=== PATIENT | female | born 1965 | race Caucasian/White ===

== ENCOUNTER → 2022-08-13 | Outpatient (CLI) | payer OTHER ==
[2022-08-13 13:12] VITALS: BP 134/91; PULSE 67; RESP 18; TEMP 98.1
--- NOTE | 2022-08-13 14:39 | P.PAINPG ---
PQRS Measure Charge Sheet Comment: HISTORY OF PRESENT ILLNESS: 56 yr old female as a referral from Dr Moseley presents today w severe and chronic neck pain secondary to DDD, spondylosis and facet arthropathy without myelopathy for evaluation. Pt states pain level is provoked at 8 /10 in intensity, constant, localized in the mid to lower cervical spine, dull, achy in character w shooting pain towards the BL shoulders. Pain is provoked by lifting, rotation, hyperextension. Pain is alleviated by medications (Lyrica, Zanaflex), topical, PT w massage x 8 wks until July 2022, chiropractic treatments weekly x 1 mo which ended in Apr 2022, use of a cane for ambulatory assistance, repositioning and rest. PMH: OA, HTN, MDD PSH: Appendectomy, Lumbar Fusion, C section SH: No tobacco use, Occasional ETOH use, No illicit drug use FH: DM All: See list Meds: See list REVIEW OF ORGAN SYSTEMS: CONSTITUTIONAL: No fevers or chills. No recent weight loss. NEUROLOGICAL: + numbness and tingling along the distal extremities. No seizure disorders or headaches. MUSCULOSKELETAL: + pain PSYCHIATRIC: Denies current depression or suicidal thoughts. Physical Examinations : Constitutional : Cooperative , not in acute distress . Neurologic : Cranial nerve II to XII intact. No focal n eurological deficits. Psychiatric : alert & oriented x 3. Matching mood & appropriate affect. Judgment & insight intact. Musculoskeletal : Cervical Spine Motor strength in the deltoid and biceps: Normal right side. Normal Left side Motor strength biceps and the wrist extensors: Normal right side . Normal left side Motor strength in the triceps muscle: Normal right side. Normal left side Deep tendon reflexes: Normal at the biceps. Normal at Brachioradialis. Normal at triceps Vertebral body tenderness to deep palpation over C6 Cervical facet loading test: Spurling test: positive on C6-C7, L > R Neck distraction test: positive bilaterally Flora sign: positive bilaterally Lumbar spine Motor strength lower extremities ,thigh and legs 5/5 Right side , 5/5 Left side Deep tendon reflexes : Normal Knee Jerk. Normal Ankle Jerk Vertebral body tenderness over Gupta Test positive Lumbar facet Loading Test: positive Right / positive Left Range of motion of the lumbar spine Flexion 30 degrees, extension 10 degrees Straight Leg Raise test: Left/ Right positive at degree Kelsy test: positive right / positive left. Severe tenderness over the Sacroiliac joint on the Right / Left sides Gaenslen test: positive bilaterally Seated flexion test: positive bilaterally. Sacral spine : Severe tenderness over the Sacroiliac joint: right side / left side Range of motion: Flexion of the lumbar spine <60 degrees Range of motion: Extension of the lumbar spine <20 degrees Gaenslen's Test positive Alexsander's Test positive Kelsy test: positive right side / left side Thigh Thrust Test Sacral Thrust Test Imaging: MRI noncontrast of the cervical spine from 06/12/22 reviewed Assessment/ Plan : Cervical stenosis, cervical spondylosis Recommendation of SUKUMAR C6-C7 #1. May need a series of injections for optimal pain relief. Risks, benefits of procedure discussed and patient verbalized understanding. Admits to aspirin or anti- coagulant use or medical history of diabetes. Protocol for discontinuation/ continuation of medications ron procedure discussed. Minimal anesthesia provided, if clinically indicated, consisting of Versed and Fentanyl. All questions answered. I have spent greater than 30 minutes on patient care today. Dr Fuentes was available by phone for the evaluation of this patient. The time was used to review the medical records including relevant urine studies and Prescription history (MAPs), review of the available imaging, evaluation and examination of the patient, coordination of care with the medical staff and if applicable referring physicians, as well as creation of the medical record Home Medications: Ambulatory Orders Unable To Assess [Unable to Assess] 08/13/22 Controlled Substance Measures - Controlled Substance Measures Is patient prescribed a controlled substance at discharge?: No
== END ==
LOC: PNWHC3 12:00
PROVIDERS: ATTEND Specialist
DX: M50.323 Other cervical disc degeneration at C6-C7 level (principal); M47.812 Spondylosis without myelopathy or radiculopathy, cervical region; G89.29 Other chronic pain; M48.02 Spinal stenosis, cervical region; M19.90 Unspecified osteoarthritis, unspecified site; F32.9 Major depressive disorder, single episode, unspecified; I10 Essential (primary) hypertension; Z88.6 Allergy status to analgesic agent; Z88.5 Allergy status to narcotic agent
CPT/HCPCS: 99202

== ENCOUNTER 2022-09-15 11:23 | Day surgery (SDC) | payer OTHER ==
[2022-09-09 15:05] VITALS: BMI 29.9
[~2022-09-15 11:23] MED LIST: LACTATED RINGERS 1,000 ML IV SCH
[2022-09-15 12:05] VITALS: RESP 16; TEMP 97.7
[2022-09-15] MEDS ORDERED: DEXAMETHASONE SOD PHOSPHATE 10 MG/ML 1 ML VIAL ONE (12:32)
[2022-09-15] MEDS ORDERED: IOPAMIDOL M200 10 ML VIAL ONE (12:32)
--- NOTE | 2022-09-15 12:45 | P.PCN ---
Date of Procedure: 09/15/22 Surgeon: Shirley Moreland Pathology: none sent Condition: stable Disposition: PACU Description of Procedure: PROCEDURE 1. Cervical epidural steroid injection under fluoroscopic guidance, C7-T1 ---- paramedian approach. 2. Cervical epidurogram. : PREOPERATIVE DIAGNOSIS: Cervical radiculopathy, cervical spondylosis without myelopathy POSTOPERATIVE DIAGNOSIS: : Same as above ANESTHESIA: Local anesthesia with 1% lidocaine . EBL 0 PROCEDURE INDICATION: The patient with neck pain and radiculopathy unresponsive to conservative treatment consents for procedure. PROCEDURE DESCRIPTION / TECHNIQUE: The patient was seen and identified in the preoperative area. Risks, benefits, complications, including but not limited to infections ,bleeding , allergic reactions to the medications ,and not complete pain relief, and alternatives were discussed with the patient, the patient agreed to proceed with the procedure and signed the consent. Patient was taken to the OR and time out was completed. The patient was placed in the prone position on the procedure table. A pillow was placed under the patients chest to increase the flexion of the cervical spine . The cervical area was prepped and draped in the usual sterile fashion. Vital signs were closely monitored during the procedure. Conscious sedation was used during the procedure to decrease patients anxiety. Using anterior-posterior fluoroscopy, the C7-T1 interlaminar space was identified and the skin over this site was marked and then infiltrated with 1% lidocaine subcutaneously. Subsequently, a 20-gauge 3-1/2-inch Tuohy epidural needle was inserted and advanced toward the epidural space by means of loss of resistance to air technique and guided by AP and lateral fluoroscopy. The needle tip contacted the lamina of T1 vertebra first, then it was walked off bone and into the epidural space using the loss of to air and fluoroscopic guidance to identify the epidural space. The correct needle position in the epidural space was verified with the injection of 1 mL of the water soluble contrast dye Isovue and observing an excellent epidurogram with the epidural spread of the dye, after negative aspiration for blood and CSF and in the absence of paresthesias. Again after negative aspiration, a 2 ml mixture containing 10 mg of Decadron and 1 ml of preservative free Normal Saline solution was injected and a washout of epidurogram was seen. Needle was withdrawn intact, skin was cleansed, and bandages were applied. A copy of the needle placement picture was saved to the fluoroscopy machine.
[2022-09-15 13:06] VITALS: BP 120/77; PULSE 84
--- NOTE | 2022-09-15 14:16 | FL ---
Intraoperative/procedural fluoroscopic services were provided. Total fluoroscopy time is 9.1 seconds with a total of 1 submitted images to PACS. Please see the operative/procedural note for further deta ils. DAP: 0.22284 mGym2
== END 2022-09-15 13:17 | disposition home or self-care (01) ==
LOC: ORPAIN 11:23
PROVIDERS: ATTEND Anesthesiology
DX: M47.22 Other spondylosis with radiculopathy, cervical region (principal); I10 Essential (primary) hypertension; Z88.8 Allergy status to other drugs, medicaments and biological substances
CPT/HCPCS: 62321; J1100; Q9966

== ENCOUNTER → 2022-10-07 | Outpatient (CLI) | payer OTHER ==
[2022-10-07 13:34] VITALS: BP 125/84; PULSE 71; RESP 14; TEMP 98.6
--- NOTE | 2022-10-07 14:23 | P.PAINPG ---
PQRS Measure Charge Sheet Comment: HISTORY OF PRESENT ILLNESS: 56 yr old female w grandson at side presents today w severe and chronic neck pain secondary to DDD, spondylosis and facet arthropathy without myelopathy for evaluation s/p SUKUMAR C7-T1 #1. Pt states she experienced 60% pain relief x 1 wk s/p procedure. Pt states pain level is provoked at 8 /10 in intensity, constant, localized in the mid to lower cervical spine, dull, achy in character w shooting pain towards the BL shoulders. Pain is provoked by lifting, rotation, hyperextension. Pain is alleviated by medications (Lyrica, Zanaflex), topical, PT w massage x 8 wks until July 2022, chiropractic treatments weekly x 1 mo which ended in Apr 2022, use of a cane for ambulatory assistance, repositioning and rest. Oswestry axial pain score of 35. Inteventional procedures include SUKUMAR C7-T1 x1 Medications include Lyrica, Zanaflex, topicals REVIEW OF ORGAN SYSTEMS: CONSTITUTIONAL: No fevers or chills. No recent weight loss. NEUROLOGICAL: + numbness and tingling along the distal extremities. No seizure disorders or headaches. MUSCULOSKELETAL: + pain PSYCHIATRIC: Denies current depression or suicidal thoughts. Physical Examinations : Constitutional : Cooperative , not in acute distress . Neurologic : Cranial nerve II to XII intact. No focal neurological deficits. Psychiatric : alert & oriented x 3. Matching mood & appropriate affect. Judgment & insight intact. Musculoskeletal : Cervical Spine Motor strength in the deltoid and biceps: Normal right side. Normal Left side Motor strength biceps and the wrist extensors: Normal right side . Normal left side Motor strength in the triceps muscle: Normal right side. Normal left side Deep tendon reflexes: Normal at the biceps. Normal at Brachioradialis. Normal at triceps Vertebral body tenderness to deep palpation Cervical facet loading test: BL C4-C5, C5-C6 Spurling test: positive Neck distraction test: positive bilaterally Flora sign: positive bilaterally Lumbar spine Motor strength lower extremities ,thigh and legs 5/5 Right side , 5/5 Left side Deep tendon reflexes : Normal Knee Jerk. Normal Ankle Jerk Vertebral body tenderness over Gupta Test positive Lumbar facet Loading Test: positive Right / positive Left Range of motion of the lumbar spine Flexion 30 degrees, extension 10 degrees Straight Leg Raise test: Left/ Right positive at degree Kelsy test: positive right / positive left. Severe tenderness over the Sacroiliac joint on the Right / Left sides Gaenslen test: positive bilaterally Seated flexion test: positive bilaterally. Sacral spine : Severe tenderness over the Sacroiliac joint: right side / left side Range of motion: Flexion of the lumbar spine <60 degrees Range of motion: Extension of the lumbar spine <20 degrees Gaenslen's Test positive Alexsander's Test positive Kelsy test: positive right side / left side Thigh Thrust Test Sacral Thrust Test Imaging: MRI noncontrast of the cervical spine from 06/12/22 reviewed Assessment/ Plan : Cervical stenosis, cervical spondylosis Recommendation of BL facet block of the medial branches C4-C5, C5-C6 #1. May need a series of injections, up until RFA, for optimal pain relief. Risks, benefits of procedure discussed and patient verbalized understanding. Admits to aspirin or anti- coagulant use or medical history of diabetes. Protocol for discontinuation/ continuation of medications ron procedure discussed. Minimal anesthesia provided, if clinically indicated, consisting of Versed and Fentanyl. All questions answered. I have spent greater than 30 minutes on patient care today. Dr Fuentes was available by phone for the evaluation of this patient. The time was used to review the medical records including relevant urine studies and Prescription history (MAPs), review of the available imaging, evaluation and examination of the patient, coordination of care with the medical staff and if applicable referring physicians, as well as creation of the medical record PQRS Narrative: Hx Alcohol Use (MH) Yes: RARE Home Medications: Ambulatory Orders Citalopram Hydrobromide [Citalopram HBr] 20 mg PO HS 09/09/22 DULoxetine HCL [Cymbalta] 90 mg PO DAILY 09/09/22 Ergocalciferol [Vitamin D2 (1250 Mcg = 02966 Iu)] 1,250 mcg PO WEEKLY 09/09/22 Losartan Potassium 100 mg PO HS 09/09/22 Pregabalin [Lyrica] 100 mg PO BID 09/09/22 Progesterone, Micronized [Progesterone] 100 mg PO DAILY 09/09/22 Vitamin B Complex 1 each PO DAILY 09/09/22 amLODIPine [Norvasc] 10 mg PO HS 09/09/22 estradioL [Estrace] 1 mg PO DAILY 09/09/22 tiZANidine [Zanaflex] 8 mg PO HS 09/09/22 DULoxetine HCL [Cymbalta] 30 mg PO DAILY 10/07/22 Controlled Substance Measures - Controlled Substance Measures Is patient prescribed a controlled substance at discharge?: No
== END ==
LOC: PNWHC3 12:11
PROVIDERS: ATTEND Specialist
DX: M48.02 Spinal stenosis, cervical region (principal); M47.812 Spondylosis without myelopathy or radiculopathy, cervical region; Z88.5 Allergy status to narcotic agent; Z88.8 Allergy status to other drugs, medicaments and biological substances
CPT/HCPCS: 99211

== ENCOUNTER 2022-10-30 09:47 | Day surgery (SDC) | payer OTHER ==
[2022-10-27 11:30] VITALS: BMI 31.6
[2022-10-30] MEDS ORDERED: LACTATED RINGERS 1,000 ML IV SCH (10:00)
[2022-10-30 10:10] VITALS: RESP 16; TEMP 97.2
[2022-10-30] MEDS ORDERED: fentaNYL (PF) 50 MCG/ML 2 ML AMP ONE (10:27)
[2022-10-30] MEDS ORDERED: MIDAZOLAM 2 MG/2 ML VIAL ONE (10:27)
[2022-10-30] MEDS ORDERED: methylPREDNISolone ACETATE 40 MG/ML 1 ML VIAL ONE (10:36)
[2022-10-30] MEDS ORDERED: ROPIVACAINE 5MG/ML 20ML VIAL ONE (10:36)
--- NOTE | 2022-10-30 11:00 | P.PCN ---
Date of Procedure: 10/30/22 Procedure(s) Performed: PREOPERATIVE DIAGNOSIS: 1-Cervical Spondylosis with Facet Arthropathy.without myelopathy. 2-cervical degenerative disc disease POSTOPERATIVE DIAGNOSIS:1-cervical spondylosis with facet arthropathy without myelopathy. 2-cervical degenerative disc disease PROCEDURES: Diagnostic bilateral C4 , C5 , and C6 medial branch blocks, with fluoroscopic guidance (fluoroscopy images available in radiology department ) ( to target the facet joint at bilateral C4- 5 , C5- 6 )# 1st ANESTHESIA: Monitored anesthesia care as per anesthesia department . EBL: Minimal PROCEDURE INDICATION: The patient with neck pain secondary to cervical arthropathy unresponsive to more conservative treatments. PROCEDURE DESCRIPTION / TECHNIQUE: The patient was seen and identified in the preoperative area. Risks, benefits, complications, and alternatives were discussed with the patient, the patient agreed to proceed with the procedure and signed the consent. IV was started. Vital signs remained stable throughout the procedure. Patient was taken to the OR and time out was completed. The patient was placed in the lateral position on the procedure table. The cervical area was prepped and draped in the usual sterile fashion. Critical pause was taken. Vital signs were closely monitored during the procedure. Conscious sedation was used during the procedure to decrease patients anxiety. Using cross-table lateral fluoroscopy, the centroid of the trapezoid of right C4 , C5 and C6, was identified, marked, and localized with 1% lidocaine 1 ml at each level for skin and Sub Q infiltrations . Subsequently, a 22 G 3 spinal needle was advanced guided by fluoroscopy to the centroid of the trapezoid of Right C4 , C5, C6 . [place] tip position was confirmed at the centroid of the trapezoids of Right C4 , C5 ,C6 with anteroposterior fluoroscopy. Subsequently, 2 ml of preservative-free Ropivacaine 0.5% mixed with Depo- Medrol 20 mg and half ml of the mixture was injected after negative aspiration for blood and CSF. [place] was then removed intact the same procedure was repeated at the left C4 , C5 , and C6 levels. COMPLICATIONS: No acute complications DISPOSITION / PLANS: The patient was placed in a supine position and transferred to the recovery area in a stable condition for observation and was discharged from the recovery room after meeting discharge criteria. Home discharge instructions given to the patient by the staff. The patient was reexamined prior to discharge. The patient will schedule a follow up in the clinic in 2-4 weeks.
[2022-10-30] MEDS ORDERED: IV FLUID CONTINUATION 1,000 ML IV ONE (11:03)
[2022-10-30 11:38] VITALS: BP 123/70; PULSE 70
--- NOTE | 2022-10-30 11:54 | FL ---
Intraoperative/procedural fluoroscopic services were provided. Total fluoroscopy time is 67.7 seconds with a total of 5 submitted images to PACS. Please see the operative/procedural note for further det ails. DAP: 0.25751 mGym2
== END 2022-10-30 11:36 | disposition home or self-care (01) ==
LOC: ORPAIN 09:47
DX: M47.812 Spondylosis without myelopathy or radiculopathy, cervical region (principal); M50.322 Other cervical disc degeneration at C5-C6 level; M50.321 Other cervical disc degeneration at C4-C5 level; M19.90 Unspecified osteoarthritis, unspecified site; I10 Essential (primary) hypertension; Z88.5 Allergy status to narcotic agent; Z88.8 Allergy status to other drugs, medicaments and biological substances; Z79.899 Other long term (current) drug therapy
CPT/HCPCS: 81025; 64490; 64491; J2250; J1030; J3010; J2795

== ENCOUNTER 2022-12-25 06:43 | Day surgery (SDC) | payer OTHER ==
[2022-12-22 15:31] VITALS: BMI 31.6
[~2022-12-25 06:43] MED LIST changes: +LIDOCAINE 1% (10MG/ML) FOR IV START INTRADERMA PRN
[2022-12-25] MEDS ORDERED: MIDAZOLAM 2 MG/2 ML VIAL ONE (07:41)
[2022-12-25] MEDS ORDERED: fentaNYL (PF) 50 MCG/ML 2 ML AMP ONE (07:41)
[2022-12-25] MEDS ORDERED: DEXAMETHASONE SOD PHOSPHATE 10 MG/ML 1 ML VIAL ONE (07:49)
[2022-12-25] MEDS ORDERED: ROPIVACAINE 5MG/ML 20ML VIAL ONE (07:49)
[2022-12-25] MEDS ORDERED: IV FLUID CONTINUATION 800 ML IV ONE (08:09)
--- NOTE | 2022-12-25 08:09 | P.PCN ---
Date of Procedure: 12/25/22 Surgeon: Shirley Moreland Pathology: none sent Condition: stable Disposition: PACU Description of Procedure: PREOPERATIVE DIAGNOSIS: Cervical Spondylosis with Facet Arthropathy.without myelopathy POSTOPERATIVE DIAGNOSIS: Cervical Spondylosis Facet Arthropathy. Without myelopathy PROCEDURES: Diagnostic Bilateral medial branchs block with fluoroscopic guidance for levels C4, C5, and C6 bilaterally ANESTHESIA: Local with 1% lidocaine; IV sedation by the anesthesia Departmentand EBL: Minimal PROCEDURE INDICATION: The patient with neck pain secondary to cervical arthropathy unresponsive to more conservative treatments. PROCEDURE DESCRIPTION / TECHNIQUE: The patient was seen and identified in the preoperative area. Risks, benefits, complications, and alternatives were discussed with the patient, the patient agreed to proceed with the procedure and signed the consent. IV was started. Vital signs remained stable throughout the procedure. Patient was taken to the OR and time out was completed. The patient was placed in the supine position on the procedure table. . The cervical area was prepped with chloraprep and draped in the usual sterile fashion. Critical pause was taken. Vital signs were closely monitored during the procedure. Conscious sedation was used during the procedure to decrease patients anxiety. Using cross-table lateral fluoroscopy, the centers of the trapezoid of C4,C5, and C6 were identified, marked, and localized with 1% lidocaine 1 ml at each level for skin and Sub Q infiltrations . Subsequently, a 25 G 3.5 inch spinal needle was advanced guided by fluoroscopy to the target points mentioned above. Subsequently, 2 ml of preservative-free Ropivacaine 0.5% mixed with Dexamethasone 10 mg and half ml of the mixture was injected at each level after negative aspiration for blood and CSF. [place] were then removed intact the same procedure was repeated ont the left side in the same manner. COMPLICATIONS: No acute complications. DISPOSITION / PLANS: The patient was placed in a supine position and transferred to the recovery area in a stable condition for observation and was discharged from the recovery room after meeting discharge criteria. Home discharge instructions given to the patient by the staff. The patient was reexamined prior to discharge. The patient will schedule a follow up in the clinic in 2-4 weeks.
--- NOTE | 2022-12-25 08:30 | FL ---
EXAMINATION TYPE: FL guided pain mgmt statistic DATE OF EXAM: 12/25/2022 HISTORY: Fluoroscopy time Total dose area product (DAP) in uGy*m?, mGy*cm? (or similar): 0.10741 IMPRESSION: 1. Fluoroscopy time.
[2022-12-25 08:48] VITALS: BP 140/80; PULSE 80; RESP 16
== END 2022-12-25 08:39 | disposition home or self-care (01) ==
LOC: ORPAIN 06:43
PROVIDERS: ATTEND Anesthesiology
DX: M47.812 Spondylosis without myelopathy or radiculopathy, cervical region (principal); I10 Essential (primary) hypertension; F32.A Depression, unspecified; M19.90 Unspecified osteoarthritis, unspecified site; Z79.899 Other long term (current) drug therapy; Z88.5 Allergy status to narcotic agent; Z88.6 Allergy status to analgesic agent
CPT/HCPCS: 64490; 64491 ×2; J2250; J1100; J3010; J2795

== ENCOUNTER → 2023-02-03 | Outpatient (CLI) | payer OTHER ==
[2023-02-03 08:48] LABS: INR 0.9 (<1.2); Partial Thromboplastin Time 24.8 sec (22.0-30.0); Prothrombin Time 10.2 sec (10.0-12.5)
--- NOTE | 2023-02-03 09:06 | XR ---
EXAMINATION TYPE: XR chest 2V DATE OF EXAM: 02/03/2023 8:24 AM CLINICAL INDICATION:Female, 57 years old with history of Z01.818; COMPARISON: None TECHNIQUE: XR chest 2V Frontal and lateral views of the chest. FINDINGS: Lungs/Pleura: There is no evidence of pleural effusion, focal consolidation, or pneumothorax. Pulmonary vascularity: Unremarkable. Heart/mediastinum: Cardiomediastinal silhouette is unremarkable. Musculoskeletal: No acute osseous pathology. Other findings: None IMPRESSION: No acute cardiopulmonary disease/process.
[2023-02-03 14:22] LABS: Appearance,Urine Turbid (Clear); Bilirubin,Urine Small (Negative); Blood,Urine Negative (Negative); Color,Urine Dark Yellow (Yellow); Ketones,Urine Negative (Negative); Nitrite,Urine Negative (Negative); PH, Urine 5.5; Specific Gravity,Urine 1.025 (1.001-1.030); Urobilinogen,Urine 0.2 E.U./DL
[2023-02-03 16:14] LABS: Bacteria,Urine 1+ (None Seen)
[2023-02-03 16:22] LABS: BUN/Creat Ratio 16.12 Ratio (12.00-20.00); Blood Urea Nitrogen 12.9 mg/dL (9.0-27.0); Calcium 9.9 mg/dL (8.7-10.3); Carbon Dioxide 24.8 mmol/L (21.6-31.8); Chloride 102 mmol/L (96-109); Glucose 99 mg/dL (70-110); Potassium 4.3 mmol/L (3.5-5.5); Sodium 140 mmol/L (135-145)
[2023-02-03 16:28] LABS: Basophils # (A) 0.05 X 10*3/uL (0.00-0.10); Basophils % (A) 0.7 %; Eosinophils # (A) 0.25 X 10*3/uL (0.04-0.35); Eosinophils % (A) 3.4 %; HCT 43.4 % (37.2-46.3); Lymphocytes % (A) 30.3 %; MCH 29.3 pg (27.0-32.0); MCHC 32.3 g/dL (32.0-37.0); MCV 90.8 FL (80.0-97.0); Mean Platelet Volume 10.8 FL (9.5-12.2); Monocytes # (A) 0.35 X 10*3/uL (0.20-1.00); Monocytes % (A) 4.8 %; NRBC Per 100 WBC 0 X 10*3/uL (0.00-0.01); Neutrophils % (A) 60.5 %; Platelet Count 317 X 10*3/uL (140-440); RBC 4.78 X 10*6/uL (4.10-5.20); RDW 12.5 % (11.5-14.5); WBC 7.27 X 10*3/uL (4.50-10.00)
== END | disposition home or self-care (01) ==
LOC: LABPAT 07:46
PROVIDERS: ATTEND Orthopaedic Surgery Orthopaedic Surgery of the Spine
DX: Z01.818 Encounter for other preprocedural examination (principal); M54.17 Radiculopathy, lumbosacral region; R94.31 Abnormal electrocardiogram [ECG] [EKG]
CPT/HCPCS: 71046; 80048; 81001; 85025; 85610; 85730; 87070; 93005

== ENCOUNTER → 2023-02-09 | Outpatient (CLI) | payer OTHER ==
--- NOTE | 2023-02-09 11:20 | P.PAINPG ---
PQRS Measure Charge Sheet Comment: HISTORY OF PRESENT ILLNESS: 56 yr old female w grandson at side presents today w severe and chronic LBP x 6 mo secondary to DDD, spondylosis and facet arthropathy without myelopathy for evaluation. Pt states pain level is provoked at 8 /10 in intensity, constant, localized in the lumbar spine, predominantly axial, dull/ achy in character w occasional shooting pain towards the BLEs. Pain is provoked by lifting, rotation. Pain is alleviated by medications, topical, PT w massage x 8 wks until Aug 2022, chiropractic treatments weekly x 1 mo which ended in Mar-Apr 2022, physician guided home exercises 4 times/ wk since Aug 2022, use of a cane for ambulatory assistance, repositioning and rest. Oswestry axial pain score of 34. She has neck surgery scheduled in Feb 2023. Inteventional procedures include SUKUMAR C7-T1 x1, BL MBB C4-C6 x1 Medications include Lyrica, Zanaflex, topicals REVIEW OF ORGAN SYSTEMS: CONSTITUTIONAL: No fevers or chills. No recent weight loss. NEUROLOGICAL: + numbness and tingling along the distal extremities. No seizure disorders or headaches. MUSCULOSKELETAL: + pain PSYCHIATRIC: Denies current depression or suicidal thoughts. Physical Examinations : Constitutional : Cooperative , not in acute distress . Neurologic : Cranial nerve II to XII intact. No focal neurological deficits. Psychiatric : alert & oriented x 3. Matching mood & appropriate affect. Judgment & insight intact. Musculoskeletal : Cervical Spine Motor strength in the deltoid and biceps: Normal right side. Normal Left side Motor strength biceps and the wrist extensors: Normal right side . Normal left side Motor strength in the triceps muscle: Normal right side. Normal left side Deep tendon reflexes: Normal at the biceps. Normal at Brachioradialis. Normal at triceps Vertebral body tenderness to deep palpation Cervical facet loading test Spurling test: positive Neck distraction test: positive bilaterally Flora sign: positive bilaterally Lumbar spine Motor strength lower extremities ,thigh and legs 5/5 Right side , 5/5 Left side Deep tendon reflexes : Normal Knee Jerk. Normal Ankle Jerk Vertebral body tenderness over Gupta Test positive Lumbar facet Loading Test: positive Right / positive Left Range of motion of the lumbar spine Flexion 30 degrees, extension 10 degrees Straight Leg Raise test: Left/ Right positive at degree Kelsy test: positive right / positive left. Severe tenderness over the Sacroiliac joint on the Right / Left sides Gaenslen test: positive bilaterally Seated flexion test: positive bilaterally. Sacral spine : Severe tenderness over the Sacroiliac joint: right side / left side Range of motion: Flexion of the lumbar spine <60 degrees Range of motion: Extension of the lumbar spine <20 degrees Gaenslen's Test positive Alexsander's Test positive Kelsy test: positive right side / left side Thigh Thrust Test Sacral Thrust Test Imaging: MRI noncontrast of the cervical spine from 06/12/22 reviewed Assessment/ Plan : Cervical stenosis, cervical spondylosis, Lumbar DDD Recommendation of medication management. Tramadol 50mg #60 w 1 RF. Narcotic agreement signed 02/09/23. Lumbar x- ray M51.36 May need additional testing if indicated. All questions answered. I have spent greater than 30 minutes on patient care today. Dr Fuentes was av ailable by phone for the evaluation of this patient. The time was used to review the medical records including relevant urine studies and Prescription history (MAPs), review of the available imaging, evaluation and examination of the patient, coordination of care with the medical staff and if applicable referring physicians, as well as creation of the medical record PQRS Narrative: Hx Alcohol Use (MH) Yes: RARE Home Medications: Ambulatory Orders Citalopram Hydrobromide [Citalopram HBr] 20 mg PO HS 09/09/22 DULoxetine HCL [Cymbalta] 90 mg PO DAILY 09/09/22 Ergocalciferol [Vitamin D2 (1250 Mcg = 12858 Iu)] 1,250 mcg PO WEEKLY 09/09/22 Losartan Potassium 100 mg PO HS 09/09/22 Pregabalin [Lyrica] 100 mg PO BID 09/09/22 Progesterone, Micronized [Progesterone] 100 mg PO DAILY 09/09/22 Vitamin B Complex 1 each PO DAILY 09/09/22 amLODIPine [Norvasc] 10 mg PO HS 09/09/22 estradioL [Estrace] 1 mg PO DAILY 09/09/22 tiZANidine [Zanaflex] 8 mg PO HS 09/09/22 traMADol HCL 50 mg PO BID PRN 30 Days #60 tab 02/09/23 Controlled Substance Measures - Controlled Substance Measures Is patient prescribed a controlled substance at discharge?: Yes When asked, does pt state using other controlled substances?: Yes If prescribed controlled substance>3 days was MAPS reviewed?: Yes If Rx opioid, was Start Talking consent form obtained?: Yes Was information provided regarding opioid addiction?: Yes
[2023-02-09 11:28] VITALS: BP 122/79; PULSE 76; RESP 16; TEMP 98.4
== END ==
LOC: PNWHC3 10:54
PROVIDERS: ATTEND Specialist
DX: M47.816 Spondylosis without myelopathy or radiculopathy, lumbar region (principal); M48.02 Spinal stenosis, cervical region; M47.812 Spondylosis without myelopathy or radiculopathy, cervical region; M51.36 Other intervertebral disc degeneration, lumbar region; Z88.5 Allergy status to narcotic agent
CPT/HCPCS: 99211

== ENCOUNTER → 2023-02-09 | Outpatient (CLI) | payer OTHER ==
--- NOTE | 2023-02-09 18:30 | XR ---
EXAMINATION TYPE: XR lumbar spine 2 or 3V DATE OF EXAM: 02/09/2023 Comparison: None Clinical History: 57-year-old female M57.36 Findings: There is a levoconvex scoliosis centered along the upper lumbar spine. Posterior lumbar fusion extend s from L2 through L5 levels with lateral osseous fusion changes as well. Anterior bridging anterior s pondylosis T1-T2. Possible bridging anterior endplate spondylosis also involving T11-T12 and T12-L1. Vertebral body heights are preserved. Mild degenerative disc disease below the fusion at L5-S1. Impression: 1. Status post L2-L5 posterior and lateral osseous fusion changes. Marked levoconvex scoliosis center ed at the upper lumbar spine above the fusion. 2. However, there is possible bridging anterior endplate spondylosis extending from T11 down to the L 2 level. 3. No vertebral compression collapse. 4. Mild degenerative disc disease below the fusion at L5-S1.
== END | disposition home or self-care (01) ==
LOC: LABPAT 11:32
PROVIDERS: ATTEND Orthopaedic Surgery Orthopaedic Surgery of the Spine
DX: Z01.818 Encounter for other preprocedural examination (principal); M47.816 Spondylosis without myelopathy or radiculopathy, lumbar region; M51.37 Other intervertebral disc degeneration, lumbosacral region
CPT/HCPCS: 72100; 86850; 86900; 86901

== ENCOUNTER 2023-02-17 11:04 | Day surgery (SDC) | payer OTHER ==
[~2023-02-17 11:04] MED LIST changes: +DEXAMETHASONE SOD PHOSPHATE 4 MG/ML 1 ML VIAL IV ONE; +HYDROmorphone 0.5 MG/0.5 ML SYRINGE IVP PRN; -LACTATED RINGERS 1,000 ML IV SCH; +MIDAZOLAM 2 MG/2 ML VIAL IV PRN; +ONDANSETRON 4 MG/2 ML VIAL IVP ONE; +VANCOMYCIN 1,250 MG in SODIUM CHLORIDE 0.9% 250 ML IVPB PRN; +ceFAZolin 1,000 MG in SODIUM CHLORIDE 0.9% IRRIGATIO 1,000 ML IRRIGATION PRN
[2023-02-17] MEDS ORDERED: LACTATED RINGERS 1,000 ML IV ONE ×2 (11:47→15:56)
[2023-02-17] MEDS ORDERED: ONDANSETRON 4 MG/2 ML VIAL ONE (11:50)
[2023-02-17 11:57] VITALS: RESP 18
[2023-02-17] MEDS ORDERED: LIDOCAINE 1% INJ 10MG/ML (20 ML MDV) ONE (14:06)
[2023-02-17] MEDS ORDERED: NEOSTIGMINE 1 MG/ML 10 ML VIAL ONE (14:06)
[2023-02-17] MEDS ORDERED: ROCURONIUM 10 MG/ML (5 ML VIAL) IV ONE (14:06)
[2023-02-17] MEDS ORDERED: MIDAZOLAM 2 MG/2 ML VIAL ONE (14:06)
[2023-02-17] MEDS ORDERED: KETAMINE HCL IN 0.9 % NACL 50 MG/5 ML SYRINGE ONE (14:06)
[2023-02-17] MEDS ORDERED: PROPOFOL 10 MG/ML 20 ML VIAL IV ONE (14:06)
[2023-02-17] MEDS ORDERED: PHENYLEPHRINE 10 MG/ML VIAL ONE (14:06)
[2023-02-17] MEDS ORDERED: SUCCINYLCHOLINE CHLORIDE 200 MG/10 ML VIAL IV ONE (14:06)
[2023-02-17] MEDS ORDERED: fentaNYL (PF) 50 MCG/ML 2 ML AMP ONE (14:06)
[2023-02-17] MEDS ORDERED: GLYCOPYRROLATE 0.2 MG/ML 2 ML VIAL ONE (14:06)
[2023-02-17] MEDS ORDERED: DEXAMETHASONE SOD PHOSPHATE 10 MG/ML 1 ML VIAL ONE (14:06)
[2023-02-17] MEDS ORDERED: BUPIVACAINE (PF) 0.5% 30 ML VIAL SQ ONE ×2 (14:43)
[2023-02-17] MEDS ORDERED: LIDOCAINE 2%-EPI 1:100,000 20 ML VIAL SQ ONE ×2 (14:43)
[2023-02-17] MEDS ORDERED: GELATIN SPONGE,ABSORB (LARGE) 1 EACH SPONGE MISCELLANE ONE (14:46)
[2023-02-17] MEDS ORDERED: THROMBIN (BOVINE) 5,000 UNIT VIAL MISCELLANE ONE (14:46)
[2023-02-17] MEDS ORDERED: ONDANSETRON 4 MG/2 ML VIAL IVP PRN (16:01)
[2023-02-17] MEDS ORDERED: HYDROmorphone 1 MG/ML 1 ML SYRINGE IVP PRN (16:01)
[2023-02-17] MEDS ORDERED: ACETAMINOPHEN TAB 325 MG TAB PO PRN (16:01)
[2023-02-17] MEDS ORDERED: CYCLOBENZAPRINE 10 MG TAB PO PRN (16:01)
[2023-02-17] MEDS ORDERED: HYDROmorphone 0.5 MG/0.5 ML SYRINGE IVP PRN (16:01)
[2023-02-17] MEDS ORDERED: BENZOCAINE/MENTHOL LOZENG 1 EACH LOZENGE MUCOUS MEM PRN (16:01)
[2023-02-17] MEDS ORDERED: traMADol 50 MG TAB PO PRN (16:03)
--- NOTE | 2023-02-17 16:09 | P.OP ---
Date of Procedure: 02/17/23 Preoperative Diagnosis: Cervical stenosis C5 6 C6 7, herniated nucleus pulposis C5 6 C6 7, degenerative disc disease C5 6 C6 7, osteophytic spurring, neck pain, upper extremity radiculopathy, upper extremity weakness Postoperative Diagnosis: Same Anesthesia: GETA Pathology: none sent Condition: stable Disposition: PACU Description of Procedure: BRIEF OPERATIVE NOTE Preoperative Diagnosis:Cervical stenosis C5 6 C6 7, herniated nucleus pulposis C5 6 C6 7, degenerative disc disease C5 6 C6 7, osteophytic spurring, neck pain, upper extremity radiculopathy, upper extremity weakness Postoperative Diagnosis:Cervical stenosis C5 6 C6 7, herniated nucleus pulposis C5 6 C6 7, degenerative disc disease C5 6 C6 7, osteophytic spurring, neck pain, upper extremity radiculopathy, upper extremity weakness Procedure: Anterior cervical decompression with discectomy and fusion C5 6 C6 7 Placement of interbody graftC5 6 C6 7 Application of anterior cervical plateC5 6 C6 7 Surgeon: Dr. Moseley Heavy Truck Technician: Dion PALAFOX who is present throughout the entire the case persistence during positioning, dissection, exposure, visualization, and all crucial elements of the case as well as closure. Anesthesia: General anesthesia per Dr. Ortiz Estimated blood loss: Approximately 50 mL Complications: None apparent Components implanted: K2M Clifton Tyrrell anterior cervical plate system with screws and Vikos interbody allograft bone graft with 1 mL of DBX bone putty Disposition: To recovery room in good stable condition. OPERATIVE INDICATIONS The patient has had long-standing issues in their neck and upper extremities. She's been having significant worsening of her symptoms particularly at her neck and her left upper extremity. She's been having significant radiculopathy which has been worsening for her despite conservative treatment. She is found have disc herniation with stenosis C5 6 C6 7 and severe disc degeneration with near- complete disc height loss at C5 6 C6 7 which correlated well with her neck and a Charnley pain and symptoms The patient has been through conservative treatment. We discussed various treatment options including surgery, and the patient wishes to proceed with surgery We discussed the risk, patient's alternatives and benefits of surgery including but not limited to, risk of bleeding risk of infection, risk of need for further surgery, risk of decreased, loss of motion, muscle function, malunion nonunion, hardware failure, nerve damage, paralysis, heart attack, and . OPERATIVE SUMMARY After discussing all the risks, patient alternatives and benefits at length, the patient elected to proceed with surgical intervention, signed informed consent, and presented for their procedure. The patient was seen and examined in the preoperative holding area and the surgical site was marked. The patient was given antibiotics and brought to the operating room. The patient was positioned on the operating room table in a supine position being careful to pad any bony prominences and pressure points. The patient was sedated and intubated by anesthesia in standard fashion. Once the airway and C- spine were stabilized the patient's arms were padded and tucked at her side, with her shoulders gently taped. The head was placed in a donut pad with the neck in good neutral alignment and position. We were careful to maintain the patient's cervical spine and good neutral alignment and position throughout. The patient was prepped and draped in a normal standard fashion. An appropriate timeout and keystone protocol performed. We were able to proceed with the surgery. The local wound area was infiltrated with local anesthetic. An incision was made transversely approximately 2-1/2 cm over the appropriate levels at C6. Dissection was taken down subcutaneously to the level of the platysma which was split in line with its fibers. Dissection was taken with a carotid approach, with the trachea and esophagus medial and the carotid sheath laterally. We dissected down to the anterior surface of the vertebral bodies. Intraoperative x-ray was taken which showed a marker at the appropriate level at C5 6. With the appropriate level positively confirmed, we were able to proceed with discectomy at the appropriate levels first at C5 6 and then at C6 7. All of the operative levels were exposed appropriately. The patient had all their twitches back, and there was no evidence of recurrent laryngeal issue. The wound was copiously irrigated and suctioned dry as had been done periodically throughout the case. At the appropriate level/levels, first at C5 6 and then at C6 7 I established an annulotomy with an 11 blade scalpel. I removed the anterior cervical osteophytes. A discectomy was performed with a combination of pituitary rongeurs, curettes, a high-speed bur, and Kerrison rongeurs. The posterior longitudinal ligament was taken down as were any posterior oste ophytes. This gave good central and bilateral foraminal decompression. There is no evidence of any dural tear or leak. The endplates were prepared with a high-speed bur. With the endplates in good parallel position, I was able to size for the appropriate size interbody graft. The wound was irrigated and suctioned dry the graft was prepared and malleted into position. It had good alignment and position with the anterior surface flush with the anterior surface of the vertebral bodies. This was done similarly the appropriate levels first at C5 6 and then at C6 7. With the grafts intact, I was able to measure and contour and appropriate sized plate. The plate was positioned at the midline over the appropriate levels at C5 6 and 7. Screw holes were established with a hand drill and drill guide. Screws were placed in good alignment and position with excellent bony purchase. They were seated under the locking device. The construct was checked and found to be stable. Intraoperative x-ray was taken which showed good alignment and position of the implants at the appropriate levels. There was no evidence of any dural tear or leak. Good hemostasis was maintained. The wound was copiously irrigated and suctioned dry as had been done periodically throughout the case. The platysma was closed with absorbable suture. The subcutaneous tissue was closed. The subcuticular tissue was closed with absorbable suture. The wound was cleaned and dried and dressed appropriately. A soft cervical collar was placed appropriately. The patient was woken up by anesthesia, extubated, transferred back gently to their hospital bed and brought to the recovery room in good stable condition. The patient will be admitted to the hospital for appropriate postoperative care, medical management and monitoring. We will continue to follow them closely about the postoperative course.
--- NOTE | 2023-02-17 17:04 | XR ---
Fluoroscopy INDICATION: Cervical fusion TECHNIQUE: Crosstable lateral cervical spine FINDINGS: Images obtained: 1: There is placement for anterior cervical fusion with a needle directed towards t he C5-6 level.. IMPRESSION: 1. Crosstable lateral cervical spine with needle directed towards the C5 5 C6 level
[2023-02-17] MEDS ORDERED: HYDROmorphone 0.5 MG/0.5 ML SYRINGE IVP ONE (17:05)
[2023-02-17] MEDS: LACTATED RINGERS 1,000 ML IV SCH ×2 (17:40→17:41)
[2023-02-17] MEDS: SODIUM CHLORIDE 0.9% 1,000 ML IV SCH (19:17)
[2023-02-17] MEDS: DULoxetine HCL 30 MG CAPSULE.DR PO SCH (20:20)
[2023-02-17] MEDS: PREGABALIN 100 MG CAP PO SCH (20:20)
[2023-02-17] MEDS: HYDROcodone/APAP 5-325MG 1 EACH TAB PO PRN (20:21)
[2023-02-17] MEDS ORDERED: CITALOPRAM HYDROBROMIDE 20 MG TAB PO SCH (21:00)
[2023-02-17] MEDS ORDERED: amLODIPine 10 MG TAB PO SCH (21:00)
[2023-02-17] MEDS ORDERED: diazePAM 5 MG TAB PO SCH (21:00)
[2023-02-18] MEDS: SODIUM CHLORIDE 0.9% 1,000 ML IV SCH (05:00)
--- NOTE | 2023-02-18 07:41 | XR ---
EXAMINATION TYPE: XR cervical spine 1V DATE OF EXAM: 02/17/2023 COMPARISON: 02/17/2023 earlier exam HISTORY: Hardware placement TECHNIQUE: Crosstable lateral cervical spine FINDINGS: Anterior fusion is present at C5-C7. The lower aspect is limited in evaluation. Disc spacer is evident C5-C6. Patient is intubated. IMPRESSION: 1. Status post anterior cervical fusion
[2023-02-18] MEDS: PREGABALIN 100 MG CAP PO SCH (08:13)
[2023-02-18] MEDS: DULoxetine HCL 30 MG CAPSULE.DR PO SCH (08:13)
[2023-02-18] MEDS: HYDROcodone/APAP 5-325MG 1 EACH TAB PO PRN (08:19)
[2023-02-18 08:21] VITALS: BP 112/69; PULSE 76; TEMP 98.2
[2023-02-18] MEDS ORDERED: NON FORMULARY DRUG (Vitamin B Complex [Vitamin B Complex] 1 EACH Capsule) PO SCH (09:00)
[2023-02-18] MEDS ORDERED: ERGOCALCIFEROL 1,250 MCG (50,000 IU) CAPSULE PO SCH (09:00)
[2023-02-18] MEDS ORDERED: LACTOBACILLUS ACIDOPHILUS/PECT 1 EACH CAPSULE PO SCH (09:00)
[2023-02-18] MEDS ORDERED: PATIENT'S OWN (Progesterone, Micronized [Progesterone] 100 MG Capsule) PO SCH (09:00)
[2023-02-18] MEDS ORDERED: LOSARTAN 50 MG TAB PO SCH (09:00)
--- NOTE | 2023-02-18 09:49 | P.DS ---
Providers Date of admission: 02/18/23 Attending physician: Casa Moseley Primary care physician: Dmitry [place] Hospital Course: The patient presented on the day of admission as per their operative note. She is postop day 1 status was anterior cervical decompression with discectomy and fusion at C5 6 C6 7 for disc herniation with cervical stenosis and upper extremity radiculopathy. She feels her arms are doing very well. She is having some tightness when she swallows but she is tolerating her diet well. Her neck is supple with oral medications. Physical Exam The incision site is clean dry and intact. There is no erythema no drainage. There is no purulence no evidence of infection. Her neck is soft and supple. Abdomen soft and nontender. Chest has good excursion with deep inspiration and expiration. The patient has active and passive range of motion intact at the upper and lower extremities. There is no acute change in neurologic status. She has good motion in her bilateral upper extremities. Hospital Course Postoperative day #1 status post anterior cervical decompression with discectomy and fusion C5 6 C6 7 for her cervical stenosis disc herniation upper extremity radiculopathy and degenerative disc disease. Patient is progressing very nicely. The patient has been making good progress postoperatively. They have completed the prophylactic antibiotics without any signs or symptoms of infection. The patient has been able to advance their diet, and is tolerating diet adequately. The pain was initially controlled with IV medications and is now controlled appropriately with oral medications. The patient has been able to increase their mobilization. The patient has progressed appropriately. I think they are in good stable condition for discharge today. They will be sent home with appropriate prescriptions. I answered their questions to the best of my ability in a language that they can understand and they are agreeable with the plan. They will follow up as directed. Patient Condition at Discharge: Good Plan - Discharge Summary Discharge Rx Participant: Yes New Discharge Prescriptions: New HYDROcodone/APAP 5-325MG [[place] 5-325] 1 tab PO Q6HR PRN 3 Days #12 tab PRN Reason: Pain No Action amLODIPine [Norvasc] 10 mg PO HS DULoxetine HCL [Cymbalta] 60 mg PO BID Vitamin B Complex 1 each PO DAILY Bacillus Coagulans [Probiotic] 1 each PO DAILY estradioL [Estrace] 1 mg PO DAILY Citalopram Hydrobromide [Citalopram HBr] 20 mg PO HS Pregabalin [Lyrica] 100 mg PO BID Losartan Potassium 100 mg PO DAILY Progesterone, Micronized [Progesterone] 100 mg PO DAILY Ergocalciferol [Vitamin D2 (1250 Mcg = 24787 Iu)] 1,250 mcg PO WEEKLY traMADol HCL 50 mg PO BID PRN 30 Days #60 tab PRN Reason: Pain diazePAM [Valium] 5 mg PO HS Discharge Medication List Citalopram Hydrobromide [Citalopram HBr] 20 mg PO HS 09/09/22 [History] DULoxetine HCL [Cymbalta] 60 mg PO BID 09/09/22 [History] Ergocalciferol [Vitamin D2 (1250 Mcg = 54140 Iu)] 1,250 mcg PO WEEKLY 09/09/22 [History] Losartan Potassium 100 mg PO DAILY 09/09/22 [History] Pregabalin [Lyrica] 100 mg PO BID 09/09/22 [History] Progesterone, Micronized [Progesterone] 100 mg PO DAILY 09/09/22 [History] Vitamin B Complex 1 each PO DAILY 09/09/22 [History] amLODIPine [Norvasc] 10 mg PO HS 09/09/22 [History] estradioL [Estrace] 1 mg PO DAILY 09/09/22 [History] Bacillus Coagulans [Probiotic] 1 each PO DAILY 02/09/23 [History] diazePAM [Valium] 5 mg PO HS 02/09/23 [History] traMADol HCL 50 mg PO BID PRN 30 Days #60 tab 02/09/23 [Rx] HYDROcodone/APAP 5-325MG [[place]uzerne 5-325] 1 tab PO Q6HR PRN 3 Days #12 tab 02/17/23 [Rx] Follow up Appointment(s)/Referral(s): Casa Moseley DO [Doctor of Osteopathic Medicine] - 2 Weeks Patient Instructions/Handouts: *Surgery [facility] - (Anesthesia) Discharge Instructions Outpatient Surgery Activity/Diet/Wound Care/Special Instructions: Keep site clean. May shower with waterproof Tegaderm intact. Do not soak in a tub. After 72 hours postoperatively, patient May remove dressing and then may shower with area uncovered. Leave glue intact and allow it to fray off on its own. May ambulate as tolerated. Avoid heavy or rigorous activity. No repetitive bending twisting or lifting. No overhead work. Discharge Disposition: HOME SELF-CARE
== END 2023-02-18 11:38 | disposition home or self-care (01) ==
LOC: OR 11:04 → 4SSUR 17:10 → OR 02-18 11:38
PROVIDERS: ATTEND Orthopaedic Surgery Orthopaedic Surgery of the Spine
DX: M48.02 Spinal stenosis, cervical region (principal); M50.122 Cervical disc disorder at C5-C6 level with radiculopathy; Z79.899 Other long term (current) drug therapy
CPT/HCPCS: 81025; 72020; 20930; 20931; 22551; 22552; C1713 ×2; C1762; J3370; J0690 ×3; J2405; J1170 ×2; J0665

== ENCOUNTER → 2023-04-07 | Outpatient (CLI) | payer OTHER ==
[2023-04-07 13:23] VITALS: BP 120/81; PULSE 70; RESP 16
--- NOTE | 2023-04-07 14:44 | P.PAINPG ---
PQRS Measure Charge Sheet Comment: HISTORY OF PRESENT ILLNESS: A 57 yr old female presents today w severe and chronic neck and LBP x 1 yr secondary to post cervical laminectomy, lumbar DDD, spondylosis and facet arthropathy without myelopathy for evaluation. Pt states pain level is provoked at 8 /10 in intensity, constant, localized in the lumbar spine, predominantly axial, dull/ achy in character w occasional shooting pain towards the BLEs. Pain is provoked by lifting, rotation. Pain is alleviated by medications, topical, PT w massage x 8 wks until Aug 2022, chiropractic treatments weekly x 1 mo which ended in Mar-Apr 2022, physician guided home exercises 4 times/ wk since Aug 2022, use of a cane for ambulatory assistance, repositioning and rest. Oswestry axial pain score of 34. She has neck surgery scheduled in Feb 2023. Inteventional procedures include SUKUMAR C7-T1 x1, BL MBB C4-C6 x1 Medications include Lyrica, Zanaflex, topicals REVIEW OF ORGAN SYSTEMS: CONSTITUTIONAL: No fevers or chills. No recent weight loss. NEUROLOGICAL: + numbness and tingling along the distal extremities. No seizure disorders or headaches. MUSCULOSKELETAL: + pain PSYCHIATRIC: Denies current depression or suicidal thoughts. Physical Examinations : Constitutional : Cooperative , not in acute distress . Neurologic : Cranial nerve II to XII intact. No focal neurological deficits. Psychiatric : alert & oriented x 3. Matching mood & appropriate affect. Judgment & insight intact. Musculoskeletal : Cervical Spine Motor strength in the deltoid and biceps: Normal right side. Normal Left side Motor strength biceps and the wrist extensors: Normal right side . Normal left side Motor strength in the triceps muscle: Normal right side. Normal left side Deep tendon reflexes: Normal at the biceps. Normal at Brachioradialis. Normal at triceps Vertebral body tenderness to deep palpation Cervical facet loading test Spurling test: positive Neck distraction test: positive bilaterally Flora sign: positive bilaterally Lumbar spine Motor strength lower extremities ,thigh and legs 5/5 Right side , 5/5 Left side Deep tendon reflexes : Normal Knee Jerk. Normal Ankle Jerk Vertebral body tenderness over Gupta Test positive Lumbar facet Loading Test: positive Right / positive Left Range of motion of the lumbar spine Flexion 30 degrees, extension 10 degrees Straight Leg Raise test: Left/ Right positive at degree Kelsy test: positive right / positive left. Severe tenderness over the Sacroiliac joint on the Right / Left sides Gaenslen test: positive bilaterally Seated flexion test: positive bilaterally. Sacral spine : Severe tenderness over the Sacroiliac joint: right side / left side Range of motion: Flexion of the lumbar spine <60 degrees Range of motion: Extension of the lumbar spine <20 degrees Gaenslen's Test positive Alexsander's Test positive Kelsy test: positive right side / left side Thigh Thrust Test Sacral Thrust Test Imaging: MRI noncontrast of the cervical spine from 06/12/22 reviewed Assessment/ Plan : Post cervical laminectomy syndrome, Lumbar DDD Recommendation of medication management. Tramadol 50mg #60 w 1 RF. Narcotic agreement signed 02/09/23. Lumbar x- ray M51.36 May need additional testing if indicated. All questions answered. I have spent greater than 30 minutes on patient care today. Dr Fuentes was available by phone for the evaluation of this patient. The time was used to review the medical records including relevant urine studies and Prescription history (MAPs), review of the available imaging, evaluation and examination of the patient, coordination of care with the medical staff and if applicable referring physicians, as well as creation of the medical record PQRS Narrative: Hx Alcohol Use (MH) Yes: RARE Home Medications: Ambulatory Orders Citalopram Hydrobromide [Citalopram HBr] 20 mg PO HS 09/09/22 DULoxetine HCL [Cymbalta] 60 mg PO BID 09/09/22 Ergocalciferol [Vitamin D2 (1250 Mcg = 11593 Iu)] 1,250 mcg PO WEEKLY 09/09/22 Losartan Potassium 100 mg PO DAILY 09/09/22 Pregabalin [Lyrica] 100 mg PO BID 09/09/22 Progesterone, Micronized [Progesterone] 100 mg PO DAILY 09/09/22 Vitamin B Complex 1 each PO DAILY 09/09/22 amLODIPine [Norvasc] 10 mg PO HS 09/09/22 estradioL [Estrace] 1 mg PO DAILY 09/09/22 Bacillus Coagulans [Probiotic] 1 each PO DAILY 02/09/23 diazePAM [Valium] 5 mg PO HS 02/09/23 traMADol HCL 50 mg PO BID PRN 30 Days #60 tab 04/07/23 Controlled Substance Measures - Controlled Substance Measures Is patient prescribed a controlled substance at discharge?: Yes When asked, does pt state using other controlled substances?: No If prescribed controlled substance>3 days was MAPS reviewed?: Yes
== END ==
LOC: PNWHC3 12:06
PROVIDERS: ATTEND Anesthesiology
DX: M96.1 Postlaminectomy syndrome, not elsewhere classified (principal); M51.36 Other intervertebral disc degeneration, lumbar region; Z88.5 Allergy status to narcotic agent
CPT/HCPCS: 80307; 99212

== ENCOUNTER → 2023-06-30 | Outpatient (CLI) | payer OTHER ==
[2023-06-30 13:10] VITALS: BP 123/62; PULSE 87; RESP 15; TEMP 98.2
--- NOTE | 2023-06-30 14:36 | P.PAINPG ---
Objective - Vital Signs Vital signs: Intake & Output 06/29/23 06/30/23 06/30/23 18:59 06:59 18:59 Weight 58.967 kg PQRS Measure Charge Sheet Comment: HISTORY OF PRESENT ILLNESS: A 57 yr old female presents today w severe and chronic neck and LBP x 1 yr secondary to post cervical laminectomy, post lumbar laminectomy (Feb 2023) for medication refills. Pt states pain level is provoked at 5 /10 in intensity, constant, localized in the lumbar spine, predominantly axial, achy in character w occasional shooting pain towards the BLEs. Pain is provoked by lifting, rotation. Pain is alleviated by medications, topical, PT w massage x 1 wk (cervical, lumbar) which she is currently in, chiropractic treatments weekly x 1 mo which ended in Mar-Apr 2022, physician guided home exercises 4 times/ wk since Aug 2022, use of a cane for ambulatory assistance, repositioning and rest. Oswestry axial pain score of 34. Inteventional procedures include SUKUMAR C7-T1 x1, BL MBB C4-C6 x1 Medications include Lyrica, Zanaflex, topicals REVIEW OF ORGAN SYSTEMS: CONSTITUTIONAL: No fevers or chills. No recent weight loss. NEUROLOGICAL: + numbness and tingling along the distal extremities. No seizure disorders or headaches. MUSCULOSKELETAL: + pain PSYCHIATRIC: Denies current depression or suicidal thoughts. Physical Examinations : Constitutional : Cooperative , not in acute distress . Neurologic : Cranial nerve II to XII intact. No focal neurological deficits. Psychiatric : alert & oriented x 3. Matching mood & appropriate affect. Judgment & insight intact. Musculoskeletal : Cervical Spine Motor strength in the deltoid and biceps: Normal right side. Normal Left side Motor strength biceps and the wrist extensors: Normal right side . Normal left side Motor strength in the triceps muscle: Normal right side. Normal left side Deep tendon reflexes: Normal at the biceps. Normal at Brachioradialis. Normal at triceps Vertebral body tenderness to deep palpation Cervical facet loading test Spurling test: positive Neck distraction test: positive bilaterally Flora sign: positive bilaterally Lumbar spine Motor strength lower extremities ,thigh and legs 5/5 Right side , 5/5 Left side Deep tendon reflexes : Normal Knee Jerk. Normal Ankle Jerk Vertebral body tenderness over Gupta Test positive Lumbar facet Loading Test: positive Right / positive Left Range of motion of the lumbar spine Flexion 30 degrees, extension 10 degrees Straight Leg Raise test: Left/ Right positive at degree Kelsy test: positive right / positive left. Severe tenderness over the Sacroiliac joint on the Right / Left sides Gaenslen test: positive bilaterally Seated flexion test: positive bilaterally. Sacral spine : Severe tenderness over the Sacroiliac joint: right side / left side Range of motion: Flexion of the lumbar spine <60 degrees Range of motion: Extension of the lumbar spine <20 degrees Gaenslen's Test positive Alexsander's Test positive Kelsy test: positive right side / left side Thigh Thrust Test Sacral Thrust Test Imaging: MRI noncontrast of the cervical spine from 06/12/22 reviewed Assessment/ Plan : Post cervical laminectomy syndrome, post lumbar laminectomy syndrome Recommendation of medication management. Tramadol 50mg #60 w 1 RF. Narcotic agreement signed 02/09/23. Lumbar x- ray M51.36 provided again. PT script for lumbar spine for additional management. May need additional testing if indicated. All questions answered. I have spent greater than 30 minutes on patient care today. Dr Fuentes was available by phone for the evaluation of this patient. The time was used to review the medical records including relevant urine studies and Prescription history (MAPs), review of the available imaging, evaluation and examination of the patient, coordination of care with the medical staff and if applicable referring physicians, as well as creation of the medical record - Pain Location Bilateral Neck Non-Pharmacological Interventions: Heat, Ice, Inactivity, Position/Reposition Pharmacological Interventions: Epidural, Scheduled Medication PQRS Narrative: Hx Alcohol Use (MH) Yes: RARE Home Medications: Ambulatory Orders Citalopram Hydrobromide [Citalopram HBr] 20 mg PO HS 09/09/22 DULoxetine HCL [Cymbalta] 60 mg PO BID 09/09/22 Ergocalciferol [Vitamin D2 (1250 Mcg = 35501 Iu)] 1,250 mcg PO WEEKLY 09/09/22 Losartan Potassium 100 mg PO DAILY 09/09/22 Pregabalin [Lyrica] 100 mg PO BID 09/09/22 Progesterone, Micronized [Progesterone] 100 mg PO DAILY 09/09/22 Vitamin B Complex 1 each PO DAILY 09/09/22 amLODIPine [Norvasc] 10 mg PO HS 09/09/22 estradioL [Estrace] 1 mg PO DAILY 09/09/22 Bacillus Coagulans [Probiotic] 1 each PO DAILY 02/09/23 diazePAM [Valium] 5 mg PO HS 02/09/23 traMADol HCL 50 mg PO BID PRN 30 Days #60 tab 06/30/23 Controlled Substance Measures - Controlled Substance Measures Is patient prescribed a controlled substance at discharge?: Yes When asked, does pt state using other controlled substances?: No If prescribed controlled substance>3 days was MAPS reviewed?: Yes
--- NOTE | 2023-07-01 08:05 | XR ---
EXAMINATION TYPE: XR lumbar spine 2 or 3V DATE OF EXAM: 06/30/2023 CLINICAL HISTORY: pain TECHNIQUE: Three views of the lumbar spine are submitted. COMPARISON: None. FINDINGS: Severe curvature convex to the left. Pedicular screws are noted extending from L2 through L5. Postoperative changes of the lumbar laminectomy and fusion. There are 5 lumbar type vertebral bodies identified. The lumbar spine shows satisfactory alignment w ithout evidence of acute fracture or dislocation. Vertebral body heights are within normal limits. Severe multilevel degenerative disc disease. The overlying soft tissue appears unremarkable. IMPRESSION: No acute fracture or dislocation is seen in the lumbar spine. ICD 10 NO FRACTURE, INITIAL EVALUATION
== END ==
LOC: PNWHC3 12:19
PROVIDERS: ATTEND Specialist
DX: M51.36 Other intervertebral disc degeneration, lumbar region (principal); M47.816 Spondylosis without myelopathy or radiculopathy, lumbar region; M96.1 Postlaminectomy syndrome, not elsewhere classified; Z88.8 Allergy status to other drugs, medicaments and biological substances; Z88.5 Allergy status to narcotic agent
CPT/HCPCS: 72100; 99211

== ENCOUNTER → 2023-08-25 | Outpatient (CLI) | payer OTHER ==
[2023-08-25 12:45] VITALS: BP 121/77; RESP 16
--- NOTE | 2023-08-25 14:49 | P.PAINPG ---
PQRS Measure Charge Sheet History and Exam Findings: All other causes of pain ruled out Comment: HISTORY OF PRESENT ILLNESS: A 57 yr old female presents today w severe and chronic neck and LBP x 1 yr secondary to post cervical laminectomy, post lumbar laminectomy (Feb 2023) for medication refills. Pt states pain level is provoked at 6 /10 in intensity, constant, localized in the lumbar spine, predominantly axial, achy in character w occasional shooting pain towards the BLEs. Pain is provoked by lifting, rotation. Pain is alleviated by medications, topical, PT w massage x 6 wk (cervical) which she is currently in, PT x 4 wks (lumbar) which ended in 2021, chiropractic treatments weekly x 1 mo which ended in Mar-Apr 2022, physician guided home exercises 4 times/ wk since Aug 2022 (cervical, lumbar), use of a cane for ambulatory assistance, repositioning and rest. Oswestry axial pain score of 34. Inteventional procedures include SUKUMAR C7-T1 x1, BL MBB C4-C6 x1 Medications include Lyrica, Zanaflex, Lidocaine REVIEW OF ORGAN SYSTEMS: CONSTITUTIONAL: No fevers or chills. No recent weight loss. NEUROLOGICAL: + numbness and tingling along the distal extremities. No seizure disorders or headaches. MUSCULOSKELETAL: + pain PSYCHIATRIC: Denies current depression or suicidal thoughts. Physical Examinations : Constitutional : Cooperative , not in acute distress . Neurologic : Cranial nerve II to XII intact. No focal neurological deficits. Psychiatric : alert & oriented x 3. Matching mood & appropriate affect. Judgment & insight intact. Musculoskeletal : Cervical Spine Motor strength in the deltoid and biceps: Normal right side. Normal Left side Motor strength biceps and the wrist extensors: Normal right side . Normal left side Motor strength in the triceps muscle: Normal right side. Normal left side Deep tendon reflexes: Normal at the biceps. Normal at Brachioradialis. Normal at triceps Vertebral body tenderness to deep palpation Cervical facet loading test Spurling test: positive Neck distraction test: positive bilaterally Flora sign: positive bilaterally Lumbar spine Motor strength lower extremities ,thigh and legs 5/5 Right side , 5/5 Left side Deep tendon reflexes : Normal Knee Jerk. Normal Ankle Jerk Vertebral body tenderness over Gupta Test positive Lumbar facet Loading Test: positive Right / positive Left Range of motion of the lumbar spine Flexion 30 degrees, extension 10 degrees Straight Leg Raise test: Left/ Right positive at degree Kelsy test: positive right / positive left. Severe tenderness over the Sacroiliac joint on the Right / Left sides Gaenslen test: positive bilaterally Seated flexion test: positive bilaterally. Sacral spine : Severe tenderness over the Sacroiliac joint: right side / left side Range of motion: Flexion of the lumbar spine <60 degrees Range of motion: Extension of the lumbar spine <20 degrees Gaenslen's Test positive Alexsander's Test positive Kelsy test: positive right side / left side Thigh Thrust Test Sacral Thrust Test Imaging: MRI noncontrast of the cervical spine from 06/12/22 reviewed Lumbar x ray from 06/30/23 reviewed Assessment/ Plan : Post cervical laminectomy syndrome, post lumbar laminectomy syndrome Recommendation of medication management. Tramadol 50mg #60 w 1 RF. Narcotic agreement signed 02/09/23. UDS collected 08/25/23. Lumbar MRI non contrast M51.36 ordered. PT script for lumbar spine for additional management. May need additional testing if indicated. All questions answered. I have spent greater than 30 minutes on patient care today. Dr Fuentes was available by phone for the evaluation of this patient. The time was used to review the medical records including relevant urine studies and Prescription history (MAPs), review of the available imaging, evaluation and examination of the patient, coordination of care with the medical staff and if applicable referring physicians, as well as creation of the medical record PQRS Narrative: Hx Alcohol Use (MH) Yes: RARE Home Medications: Ambulatory Orders Citalopram Hydrobromide [Citalopram HBr] 20 mg PO HS 09/09/22 DULoxetine HCL [Cymbalta] 60 mg PO BID 09/09/22 Ergocalciferol [Vitamin D2 (1250 Mcg = 59721 Iu)] 1,250 mcg PO WEEKLY 09/09/22 Losartan Potassium 100 mg PO DAILY 09/09/22 Pregabalin [Lyrica] 100 mg PO BID 09/09/22 Progesterone, Micronized [Progesterone] 100 mg PO DAILY 09/09/22 Vitamin B Complex 1 each PO DAILY 09/09/22 amLODIPine [Norvasc] 10 mg PO HS 09/09/22 estradioL [Estrace] 1 mg PO DAILY 09/09/22 Bacillus Coagulans [Probiotic] 1 each PO DAILY 02/09/23 diazePAM [Valium] 5 mg PO HS 02/09/23 traMADol HCL 50 mg PO BID PRN 30 Days #60 tab 06/30/23 Controlled Substance Measures - Controlled Substance Measures Is patient prescribed a controlled substance at discharge?: Yes When asked, does pt state using other controlled substances?: Yes If prescribed controlled substance>3 days was MAPS reviewed?: Yes
== END ==
LOC: PNWHC3 11:52
PROVIDERS: ATTEND Specialist
DX: M96.1 Postlaminectomy syndrome, not elsewhere classified (principal); M47.816 Spondylosis without myelopathy or radiculopathy, lumbar region; Z88.5 Allergy status to narcotic agent; Z88.8 Allergy status to other drugs, medicaments and biological substances
CPT/HCPCS: 80307; 99212

== ENCOUNTER → 2023-10-18 | Outpatient (CLI) | payer OTHER | LOC: PNWHC3 13:28 | PROVIDERS: ATTEND Specialist | DX: M96.1 Postlaminectomy syndrome, not elsewhere classified (principal); Z88.5 Allergy status to narcotic agent; Z88.8 Allergy status to other drugs, medicaments and biological substances | CPT/HCPCS: 99211 ==

== ENCOUNTER → 2023-12-13 | Outpatient (CLI) | payer MEDICARE, OTHER ==
[2023-12-13 10:55] VITALS: BP 129/85; PULSE 77; RESP 16; TEMP 97.1
--- NOTE | 2023-12-13 15:06 | P.PAINPG ---
PQRS Measure Charge Sheet Comment: HISTORY OF PRESENT ILLNESS: A 58 yr old female presents today w severe and chronic neck and LBP x 1 yr secondary to post cervical laminectomy, post lumbar laminectomy (Feb 2023) for medication refills. Pt states pain level is provoked at 6 /10 in intensity, constant, localized in the lumbar spine, predominantly axial, achy in character w occasional shooting pain towards the BLEs. Pain is provoked by lifting, rotation. Pain is alleviated by medications, topical, PT w massage x 6 wk (cervical) which she is currently in, PT x 6 wks (lumbar) which ended in Oct 2023, chiropractic treatments weekly x 1 mo which ended in Mar-Apr 2022, physician guided home exercises 4 times/ wk since Sep 2023 (cervical) and Oct 2023 (lumbar), use of a cane for ambulatory assistance, repositioning and rest. Inteventional procedures include SUKUMAR C7-T1 x1, BL MBB C4-C6 x1 Medications include Lyrica, Zanaflex, Lidocaine REVIEW OF ORGAN SYSTEMS: CONSTITUTIONAL: No fevers or chills. No recent weight loss. NEUROLOGICAL: + numbness and tingling along the distal extremities. No seizure disorders or headaches. MUSCULOSKELETAL: + pain PSYCHIATRIC: Denies current depression or suicidal thoughts. Physical Examinations : Constitutional : Cooperative , not in acute distress . Neurologic : Cranial nerve II to XII intact. No focal neurological deficits. Psychiatric : alert & oriented x 3. Matching mood & appropriate affect. Judgment & insight intact. Musculoskeletal : Cervical Spine Motor strength in the deltoid and biceps: Normal right side. Normal Left side Motor strength biceps and the wrist extensors: Normal right side . Normal left side Motor strength in the triceps muscle: Normal right side. Normal left side Deep tendon reflexes: Normal at the biceps. Normal at Brachioradialis. Normal at triceps Vertebral body tenderness to deep palpation Cervical facet loading test Spurling test: positive Neck distraction test: positive bilaterally Flora sign: positive bilaterally Lumbar spine Motor strength lower extremities ,thigh and legs 5/5 Right side , 5/5 Left side Deep tendon reflexes : Normal Knee Jerk. Normal Ankle Jerk Vertebral body tenderness over Gupta Test positive Lumbar facet Loading Test: positive Right / positive Left Range of motion of the lumbar spine Flexion 30 degrees, extension 10 degrees Straight Leg Raise test: Left/ Right positive at degree Kelsy test: positive right / positive left. Severe tenderness over the Sacroiliac joint on the Right / Left sides Gaenslen test: positive bilaterally Seated flexion test: positive bilaterally. Sacral spine : Severe tenderness over the Sacroiliac joint: right side / left side Range of motion: Flexion of the lumbar spine <60 degrees Range of motion: Extension of the lumbar spine <20 degrees Gaenslen's Test positive Alexsander's Test positive Kelsy test: positive right side / left side Thigh Thrust Test Sacral Thrust Test Imaging: MRI noncontrast of the cervical spine from 06/12/22 reviewed Lumbar x ray from 06/30/23 reviewed MRI non contrast lumbar spine from 07/16/23 reviewed Assessment/ Plan : Post cervical laminectomy syndrome, L1-L4 lumbar laminectomy syndrome Recommendation of medication management. Tramadol 50mg #60 w 1 RF. Narcotic agreement signed 02/09/23. UDS from 08/25/23 revieed and consistent. All questions answered. I have spent greater than 30 minutes on patient care today. Dr Fuentes was available by phone for the evaluation of this patient. The time was used to review the medical records including relevant urine studies and Prescription history (MAPs), review of the available imaging, evaluation and examination of the patient, coordination of care with the medical staff and if applicable referring physicians, as well as creation of the medical record - Pain Location Bilateral Lower Back Non-Pharmacological Interventions: Physical Therapy, Position/Reposition, Relaxation Technique Pharmacological Interventions: PRN Medication, Scheduled Medication, Topical Medication PQRS Narrative: Hx Alcohol Use (MH) Yes: RARE Home Medications: Ambulatory Orders Citalopram Hydrobromide [Citalopram HBr] 20 mg PO HS 09/09/22 DULoxetine HCL [Cymbalta] 60 mg PO BID 09/09/22 Ergocalciferol [Vitamin D2 (1250 Mcg = 10884 Iu)] 1,250 mcg PO WEEKLY 09/09/22 Losartan Potassium 100 mg PO DAILY 09/09/22 Pregabalin [Lyrica] 100 mg PO BID 09/09/22 Progesterone, Micronized [Progesterone] 100 mg PO DAILY 09/09/22 Vitamin B Complex 1 each PO DAILY 09/09/22 amLODIPine [Norvasc] 10 mg PO HS 09/09/22 estradioL [Estrace] 1 mg PO DAILY 09/09/22 Bacillus Coagulans [Probiotic] 1 each PO DAILY 02/09/23 diazePAM [Valium] 5 mg PO HS 02/09/23 traMADol HCL 50 mg PO BID PRN 30 Days #60 tab 12/13/23 Controlled Substance Measures - Controlled Substance Measures Is patient prescribed a controlled substance at discharge?: Yes When asked, does pt state using other controlled substances?: Yes If prescribed controlled substance>3 days was MAPS reviewed?: Yes
== END ==
LOC: PNWHC3 09:56
PROVIDERS: ATTEND Specialist
DX: M47.816 Spondylosis without myelopathy or radiculopathy, lumbar region (principal); M96.1 Postlaminectomy syndrome, not elsewhere classified; Z88.5 Allergy status to narcotic agent; Z88.8 Allergy status to other drugs, medicaments and biological substances
CPT/HCPCS: 99211

== ENCOUNTER → 2024-02-07 | Outpatient (CLI) | payer OTHER ==
[2024-02-07 10:09] VITALS: BP 128/76; PULSE 83; RESP 16; TEMP 97.3
--- NOTE | 2024-02-07 16:21 | P.PAINPG ---
PQRS Measure Charge Sheet Comment: HISTORY OF PRESENT ILLNESS: A 58 yr old female presents today w severe and chronic neck and LBP x 1 yr secondary to post cervical laminectomy, post lumbar laminectomy (Feb 2023) for medication refills. Pt states pain level is provoked at 6 /10 in intensity, constant, localized in the lumbar spine, predominantly axial, achy in character w occasional shooting pain towards the BLEs. Pain is provoked by lifting, rotation. Pain is alleviated by medications, topical, PT w massage x 6 wk (cervical) which she is currently in, PT x 6 wks (lumbar) which ended in Oct 2023, chiropractic treatments weekly x 1 mo which ended in Mar-Apr 2022, physician guided home exercises 4 times/ wk since Sep 2023 (cervical) and Oct 2023 (lumbar), use of a cane for ambulatory assistance, repositioning and rest. Inteventional procedures include SUKUMAR C7-T1 x1, BL MBB C4-C6 x1 Medications include Lyrica, Zanaflex, Lidocaine REVIEW OF ORGAN SYSTEMS: CONSTITUTIONAL: No fevers or chills. No recent weight loss. NEUROLOGICAL: + numbness and tingling along the distal extremities. No seizure disorders or headaches. MUSCULOSKELETAL: + pain PSYCHIATRIC: Denies current depression or suicidal thoughts. Physical Examinations : Constitutional : Cooperative , not in acute distress . Neurologic : Cranial nerve II to XII intact. No focal neurological deficits. Psychiatric : alert & oriented x 3. Matching mood & appropriate affect. Judgment & insight intact. Musculoskeletal : Cervical Spine Motor strength in the deltoid and biceps: Normal right side. Normal Left side Motor strength biceps and the wrist extensors: Normal right side . Normal left side Motor strength in the triceps muscle: Normal right side. Normal left side Deep tendon reflexes: Normal at the biceps. Normal at Brachioradialis. Normal at triceps Vertebral body tenderness to deep palpation Cervical facet loading test Spurling test: positive Neck distraction test: positive bilaterally Flora sign: positive bilaterally Lumbar spine Motor strength lower extremities ,thigh and legs 5/5 Right side , 5/5 Left side Deep tendon reflexes : Normal Knee Jerk. Normal Ankle Jerk Vertebral body tenderness over Gupta Test positive Lumbar facet Loading Test: positive Right / positive Left Range of motion of the lumbar spine Flexion 30 degrees, extension 10 degrees Straight Leg Raise test: Left/ Right positive at degree Kelsy test: positive right / positive left. Severe tenderness over the Sacroiliac joint on the Right / Left sides Gaenslen test: positive bilaterally Seated flexion test: positive bilaterally. Sacral spine : Severe tenderness over the Sacroiliac joint: right side / left side Range of motion: Flexion of the lumbar spine <60 degrees Range of motion: Extension of the lumbar spine <20 degrees Gaenslen's Test positive Alexsander's Test positive Kelsy test: positive right side / left side Thigh Thrust Test Sacral Thrust Test Imaging: MRI noncontrast of the cervical spine from 06/12/22 reviewed Lumbar x ray from 06/30/23 reviewed MRI non contrast lumbar spine from 07/16/23 reviewed Assessment/ Plan : Post cervical laminectomy syndrome, L1-L4 lumbar laminectomy syndrome Recommendation of medication management. Tramadol 50mg #60 w 1 RF. Narcotic agreement signed 02/07/24. UDS collected 02/07/24. All questions answered. I have spent greater than 30 minutes on patient care today. Dr Fuentes was available by phone for the evaluation of this patient. The time was used to review the medical records including relevant urine studies and Prescription history (MAPs), review of the available imaging, evaluation and examination of the patient, coordination of care with the medical staff and if applicable referring physicians, as well as creation of the medical record PQRS Narrative: Hx Alcohol Use (MH) Yes: RARE Home Medications: Ambulatory Orders Citalopram Hydrobromide [Citalopram HBr] 20 mg PO HS 09/09/22 DULoxetine HCL [Cymbalta] 60 mg PO BID 09/09/22 Ergocalciferol [Vitamin D2 (1250 Mcg = 45524 Iu)] 1,250 mcg PO WEEKLY 09/09/22 Losartan Potassium 100 mg PO DAILY 09/09/22 Pregabalin [Lyrica] 100 mg PO BID 09/09/22 Progesterone, Micronized [Progesterone] 100 mg PO DAILY 09/09/22 Vitamin B Complex 1 each PO DAILY 09/09/22 amLODIPine [Norvasc] 10 mg PO HS 09/09/22 estradioL [Estrace] 1 mg PO DAILY 09/09/22 Bacillus Coagulans [Probiotic] 1 each PO DAILY 02/09/23 diazePAM [Valium] 5 mg PO HS 02/09/23 traMADol HCL 50 mg PO BID PRN 30 Days #60 tab 02/07/24 Controlled Substance Measures - Controlled Substance Measures Is patient prescribed a controlled substance at discharge?: Yes When asked, does pt state using other controlled substances?: No If prescribed controlled substance>3 days was MAPS reviewed?: Yes
== END ==
LOC: PNWHC3 09:54
PROVIDERS: ATTEND Specialist
DX: M96.1 Postlaminectomy syndrome, not elsewhere classified (principal); M48.02 Spinal stenosis, cervical region; M54.12 Radiculopathy, cervical region; Z88.5 Allergy status to narcotic agent; Z88.8 Allergy status to other drugs, medicaments and biological substances
CPT/HCPCS: 80307; 99212

== ENCOUNTER → 2024-04-03 | Outpatient (CLI) | payer MEDICARE, OTHER ==
[2024-04-03 11:53] VITALS: BP 129/87; PULSE 75; RESP 15; TEMP 98.3
--- NOTE | 2024-04-03 15:20 | P.PAINPG ---
PQRS Measure Charge Sheet Comment: HISTORY OF PRESENT ILLNESS: A 58 yr old female presents today w severe and chronic neck and LBP x 1 yr secondary to post cervical laminectomy, post lumbar laminectomy (Feb 2023) for medication refills. Pt states pain level is provoked at 8 /10 in intensity, constant, localized in the lumbar spine, predominantly axial, achy in character w occasional shooting pain towards the BLEs. Pain is provoked by lifting, rotation. Pain is alleviated by medications, topical, PT w massage x 6 wk (cervical) which she is currently in, PT x 6 wks (lumbar) which ended in Oct 2023, chiropractic treatments weekly x 1 mo which ended in Mar-Apr 2022, physician guided home exercises 4 times/ wk since Sep 2023 (cervical) and Oct 2023 (lumbar), use of a cane for ambulatory assistance, repositioning and rest. Inteventional procedures include SUKUMAR C7-T1 x1, BL MBB C4-C6 x1 Medications include Lyrica, Zanaflex, Lidocaine REVIEW OF ORGAN SYSTEMS: CONSTITUTIONAL: No fevers or chills. No recent weight loss. NEUROLOGICAL: + numbness and tingling along the distal extremities. No seizure disorders or headaches. MUSCULOSKELETAL: + pain PSYCHIATRIC: Denies current depression or suicidal thoughts. Physical Examinations : Constitutional : Cooperative , not in acute distress . Neurologic : Cranial nerve II to XII intact. No focal neurological deficits. Psychiatric : alert & oriented x 3. Matching mood & appropriate affect. Judgment & insight intact. Musculoskeletal : Cervical Spine Motor strength in the deltoid and biceps: Normal right side. Normal Left side Motor strength biceps and the wrist extensors: Normal right side . Normal left side Motor strength in the triceps muscle: Normal right side. Normal left side Deep tendon reflexes: Normal at the biceps. Normal at Brachioradialis. Normal at triceps Vertebral body tenderness to deep palpation Cervical facet loading test Spurling test: positive Neck distraction test: positive bilaterally Flora sign: positive bilaterally Lumbar spine Motor strength lower extremities ,thigh and legs 5/5 Right side , 5/5 Left side Deep tendon reflexes : Normal Knee Jerk. Normal Ankle Jerk Vertebral body tenderness over Gupta Test positive Lumbar facet Loading Test: positive Right / positive Left Range of motion of the lumbar spine Flexion 30 degrees, extension 10 degrees Straight Leg Raise test: Left/ Right positive at degree Kelsy test: positive right / positive left. Severe tenderness over the Sacroiliac joint on the Right / Left sides Gaenslen test: positive bilaterally Seated flexion test: positive bilaterally. Sacral spine : Severe tenderness over the Sacroiliac joint: right side / left side Range of motion: Flexion of the lumbar spine <60 degrees Range of motion: Extension of the lumbar spine <20 degrees Gaenslen's Test positive Alexsander's Test positive Kelsy test: positive right side / left side Thigh Thrust Test Sacral Thrust Test Imaging: MRI noncontrast of the cervical spine from 06/12/22 reviewed Lumbar x ray from 06/30/23 reviewed MRI non contrast lumbar spine from 07/16/23 reviewed Assessment/ Plan : Post cervical laminectomy syndrome, L1-L4 lumbar laminectomy syndrome Recommendation of medication management. Tramadol 50mg #60 w 1 RF. Narcotic agreement signed 02/07/24. UDS from 02/07/24 reviewed and consistent. All questions answered. I have spent greater than 30 minutes on patient care today. Dr Fuentes was available by phone for the evaluation of this patient. The time was used to review the medical records including relevant urine studies and Prescription history (MAPs), review of the available imaging, evaluation and examination of the patient, coordination of care with the medical staff and if applicable referring physicians, as well as creation of the medical record PQRS Narrative: Narcotic Agreement Date Signed 02/07/24 Hx Alcohol Use (MH) Yes: RARE Home Medications: Ambulatory Orders Citalopram Hydrobromide [Citalopram HBr] 20 mg PO HS 09/09/22 DULoxetine HCL [Cymbalta] 60 mg PO BID 09/09/22 Ergocalciferol [Vitamin D2 (1250 Mcg = 40125 Iu)] 1,250 mcg PO WEEKLY 09/09/22 Losartan Potassium 100 mg PO DAILY 09/09/22 Pregabalin [Lyrica] 100 mg PO BID 09/09/22 Progesterone, Micronized [Progesterone] 100 mg PO DAILY 09/09/22 Vitamin B Complex 1 each PO DAILY 09/09/22 amLODIPine [Norvasc] 10 mg PO HS 09/09/22 estradioL [Estrace] 1 mg PO DAILY 09/09/22 Bacillus Coagulans [Probiotic] 1 each PO DAILY 02/09/23 diazePAM [Valium] 5 mg PO HS 02/09/23 traMADol HCL 50 mg PO BID PRN 30 Days #60 tab 04/03/24 Controlled Substance Measures - Controlled Substance Measures Is patient prescribed a controlled substance at discharge?: Yes When asked, does pt state using other controlled substances?: Yes If prescribed controlled substance>3 days was MAPS reviewed?: Yes
== END ==
LOC: PNWHC3 09:55
PROVIDERS: ATTEND Specialist
DX: M96.1 Postlaminectomy syndrome, not elsewhere classified (principal); Z88.5 Allergy status to narcotic agent; Z88.8 Allergy status to other drugs, medicaments and biological substances
CPT/HCPCS: 99212

== ENCOUNTER → 2024-05-29 | Outpatient (CLI) | payer MEDICARE, OTHER ==
[2024-05-29 10:22] VITALS: BP 124/84; PULSE 83; RESP 16
--- NOTE | 2024-05-29 14:45 | P.PAINPG ---
PQRS Measure Charge Sheet Comment: HISTORY OF PRESENT ILLNESS: A 58 yr old female presents today w severe and chronic neck and LBP x 1 yr secondary to post cervical laminectomy, post lumbar laminectomy (Feb 2023) for medication refills. Pt states pain level is provoked at 8 /10 in intensity, constant, localized in the lumbar spine, predominantly axial, achy in character w occasional shooting pain towards the BLEs. Pain is provoked by lifting, rotation. Pain is alleviated by medications, topical, PT w massage x 6 wk (cervical) which she is currently in, PT x 6 wks (lumbar) which ended in Oct 2023, chiropractic treatments weekly x 1 mo which ended in Mar-Apr 2022, physician guided home exercises 4 times/ wk since Sep 2023 (cervical) and Oct 2023 (lumbar), use of a cane for ambulatory assistance, repositioning and rest. Inteventional procedures include SUKUMAR C7-T1 x1, BL MBB C4-C6 x1 Medications include Lyrica, Zanaflex, Lidocaine REVIEW OF ORGAN SYSTEMS: CONSTITUTIONAL: No fevers or chills. No recent weight loss. NEUROLOGICAL: + numbness and tingling along the distal extremities. No seizure disorders or headaches. MUSCULOSKELETAL: + pain PSYCHIATRIC: Denies current depression or suicidal thoughts. Physical Examinations : Constitutional : Cooperative , not in acute distress . Neurologic : Cranial nerve II to XII intact. No focal neurological deficits. Psychiatric : alert & oriented x 3. Matching mood & appropriate affect. Judgment & insight intact. Musculoskeletal : Cervical Spine Motor strength in the deltoid and biceps: Normal right side. Normal Left side Motor strength biceps and the wrist extensors: Normal right side . Normal left side Motor strength in the triceps muscle: Normal right side. Normal left side Deep tendon reflexes: Normal at the biceps. Normal at Brachioradialis. Normal at triceps Vertebral body tenderness to deep palpation Cervical facet loading test Spurling test: positive Neck distraction test: positive bilaterally Flora sign: positive bilaterally Lumbar spine Motor strength lower extremities ,thigh and legs 5/5 Right side , 5/5 Left side Deep tendon reflexes : Normal Knee Jerk. Normal Ankle Jerk Vertebral body tenderness over Gupta Test positive Lumbar facet Loading Test: positive Right / positive Left Range of motion of the lumbar spine Flexion 30 degrees, extension 10 degrees Straight Leg Raise test: Left/ Right positive at degree Kelsy test: positive right / positive left. Severe tenderness over the Sacroiliac joint on the Right / Left sides Gaenslen test: positive bilaterally Seated flexion test: positive bilaterally. Sacral spine : Severe tenderness over the Sacroiliac joint: right side / left side Range of motion: Flexion of the lumbar spine <60 degrees Range of motion: Extension of the lumbar spine <20 degrees Gaenslen's Test positive Alexsander's Test positive Kelsy test: positive right side / left side Thigh Thrust Test Sacral Thrust Test Imaging: MRI noncontrast of the cervical spine from 06/12/22 reviewed Lumbar x ray from 06/30/23 reviewed MRI non contrast lumbar spine from 07/16/23 reviewed Assessment/ Plan : Post cervical laminectomy syndrome, L1-L4 lumbar laminectomy syndrome Recommendation of medication management. Tramadol 50mg #180 (90 day supply). Narcotic agreement signed 02/07/24. UDS from 02/07/24 reviewed and consistent. All questions answered. I have spent greater than 30 minutes on patient care today. Dr Fuentes was available by phone for the evaluation of this patient. The time was used to review the medical records including relevant urine studies and Prescription history (MAPs), review of the available imaging, evaluation and examination of the patient, coordination of care with the medical staff and if applicable referring physicians, as well as creation of the medical record - Pain Location Bilateral Lower Neck Non-Pharmacological Interventions: Heat, Ice, Inactivity, Physical Therapy, Position/Reposition Pharmacological Interventions: Epidural, PRN Medication, Scheduled Medication, Topical Medication PQRS Narrative: Narcotic Agreement Date Signed 02/07/24 Hx Alcohol Use (MH) Yes: RARE Home Medications: Ambulatory Orders Citalopram Hydrobromide [Citalopram HBr] 20 mg PO HS 09/09/22 DULoxetine HCL [Cymbalta] 60 mg PO BID 09/09/22 Ergocalciferol [Vitamin D2 (1250 Mcg = 66295 Iu)] 1,250 mcg PO WEEKLY 09/09/22 Losartan Potassium 100 mg PO DAILY 09/09/22 Pregabalin [Lyrica] 100 mg PO BID 09/09/22 Progesterone, Micronized [Progesterone] 100 mg PO DAILY 09/09/22 Vitamin B Complex 1 each PO DAILY 09/09/22 amLODIPine [Norvasc] 10 mg PO HS 09/09/22 estradioL [Estrace] 1 mg PO DAILY 09/09/22 Bacillus Coagulans [Probiotic] 1 each PO DAILY 02/09/23 diazePAM [Valium] 5 mg PO HS 02/09/23 traMADol HCL 50 mg PO BID PRN 30 Days #60 tab 04/03/24 Controlled Substance Measures - Controlled Substance Measures Is patient prescribed a controlled substance at discharge?: Yes When asked, does pt state using other controlled substances?: Yes If prescribed controlled substance>3 days was MAPS reviewed?: Yes
== END ==
LOC: PNWHC3 09:33
PROVIDERS: ATTEND Specialist
DX: M96.1 Postlaminectomy syndrome, not elsewhere classified (principal); Z88.8 Allergy status to other drugs, medicaments and biological substances; Z88.5 Allergy status to narcotic agent
CPT/HCPCS: 99212

== ENCOUNTER → 2024-08-21 | Outpatient (CLI) | payer MEDICARE, OTHER ==
[2024-08-21 10:14] VITALS: BP 120/82; PULSE 71; RESP 14; TEMP 97.8
--- NOTE | 2024-08-21 15:44 | P.PAINPG ---
Objective - Vital Signs Vital signs: Intake & Output 08/20/24 08/21/24 08/21/24 18:59 06:59 18:59 Weight 86.183 kg PQRS Measure Charge Sheet Comment: HISTORY OF PRESENT ILLNESS: A 58 yr old female w son at side presents today w severe and chronic neck and LBP x 1 yr secondary to post cervical laminectomy, post lumbar laminectomy (Feb 2023) for medication refills. Pt states pain level is provoked at 4-8 /10 in intensity, constant, localized in the cervical spine, predominantly axial, achy in character w occasional shooting pain towards the shoulders. Pain is provoked by lifting, rotation. Pain is alleviated by medications, topical, PT w massage x 6 wk (cervical) which she is currently in, PT x 6 wks (lumbar) which ended in Oct 2023, chiropractic treatments weekly x 1 mo which ended in Mar-Apr 2022, physician guided home exercises 4 times/ wk since Sep 2023 (cervical) and Oct 2023 (lumbar), use of a cane for ambulatory assistance, repositioning and rest. Inteventional procedures include SUKUMAR C7-T1 x1, BL MBB C4-C6 x1 Medications include Lyrica, Zanaflex, Lidocaine REVIEW OF ORGAN SYSTEMS: CONSTITUTIONAL: No fevers or chills. No recent weight loss. NEUROLOGICAL: + numbness and tingling along the distal extremities. No seizure disorders or headaches. MUSCULOSKELETAL: + pain PSYCHIATRIC: Denies current depression or suicidal thoughts. Physical Examinations : Constitutional : Cooperative , not in acute distress . Neurologic : Cranial nerve II to XII intact. No focal neurological deficits. Psychiatric : alert & oriented x 3. Matching mood & appropriate affect. Judgment & insight intact. Musculoskeletal : Cervical Spine Motor strength in the deltoid and biceps: Normal right side. Normal Left side Motor strength biceps and the wrist extensors: Normal right side . Normal left side Motor strength in the triceps muscle: Normal right side. Normal left side Deep tendon reflexes: Normal at the biceps. Normal at Brachioradialis. Normal at triceps Vertebral body tenderness to deep palpation Cervical facet loading test Spurling test: positive Neck distraction test: positive bilaterally Flora sign: positive bilaterally Lumbar spine Motor strength lower extremities ,thigh and legs 5/5 Right side , 5/5 Left side Deep tendon reflexes : Normal Knee Jerk. Normal Ankle Jerk Vertebral body tenderness over Gupta Test positive Lumbar facet Loading Test: positive Right / positive Left Range of motion of the lumbar spine Flexion 30 degrees, extension 10 degrees Straight Leg Raise test: Left/ Right positive at degree Kelsy test: positive right / positive left. Severe tenderness over the Sacroiliac joint on the Right / Left sides Gaenslen test: positive bilaterally Seated flexion test: positive bilaterally. Sacral spine : Severe tenderness over the Sacroiliac joint: right side / left side Range of motion: Flexion of the lumbar spine <60 degrees Range of motion: Extension of the lumbar spine <20 degrees Gaenslen's Test positive Alexsander's Test positive Kelsy test: positive right side / left side Thigh Thrust Test Sacral Thrust Test Imaging: MRI non contrast of the cervical spine from 06/12/22 reviewed Lumbar x ray from 06/30/23 reviewed MRI non contrast lumbar spine from 07/16/23 reviewed Assessment/ Plan : Post cervical laminectomy syndrome, L1-L4 lumbar laminectomy syndrome Recommendation of medication management. Tramadol 50mg #180 (90 day supply). Narcotic agreement signed 02/07/24. UDS from 02/07/24 reviewed and consistent. All questions answered. I have spent greater than 30 minutes on patient care today. Dr Fuentes was available by phone for the evaluation of this patient. The time was used to review the medical records including relevant urine studies and Prescription history (MAPs), review of the available imaging, evaluation and examination of the patient, coordination of care with the medical staff and if applicable referring physicians, as well as creation of the medical record - Pain Location Bilateral Neck Non-Pharmacological Interventions: Chiropractic Treatment, Heat, Home Exercise, Ice, Massage, Physical Therapy, TENS Unit Pharmacological Interventions: Epidural, Scheduled Medication, Topical Medication PQRS Narrative: Narcotic Agreement Date Signed 02/07/24 Hx Alcohol Use (MH) Yes: RARE Home Medications: Ambulatory Orders DULoxetine HCL [Cymbalta] 60 mg PO BID 09/09/22 Ergocalciferol [Vitamin D2 (1250 Mcg = 23539 Iu)] 1,250 mcg PO WEEKLY 09/09/22 Losartan Potassium 100 mg PO DAILY 09/09/22 Pregabalin [Lyrica] 100 mg PO BID 09/09/22 Progesterone, Micronized [Progesterone] 100 mg PO DAILY 09/09/22 Vitamin B Complex 1 each PO DAILY 09/09/22 amLODIPine [Norvasc] 10 mg PO HS 09/09/22 estradioL [Estrace] 1 mg PO DAILY 09/09/22 Bacillus Coagulans [Probiotic] 1 each PO DAILY 02/09/23 traMADol HCL 50 mg PO BID PRN 90 Days #180 tab 08/21/24 Controlled Substance Measures - Controlled Substance Measures Is patient prescribed a controlled substance at discharge?: Yes
== END ==
LOC: PNWHC3 09:49
PROVIDERS: ATTEND Specialist
DX: M96.1 Postlaminectomy syndrome, not elsewhere classified (principal); Z88.5 Allergy status to narcotic agent; Z88.8 Allergy status to other drugs, medicaments and biological substances
CPT/HCPCS: 99212